=== PATIENT | female | born 1950 | race Two or more races ===

== ENCOUNTER 2017-11-20 06:32 | Day surgery (SDC) | payer OTHER ==
[~2017-11-20 06:32] MED LIST: CATAFLAN PO; NEURONTIN800 MG PO; ULTRACET PO; [UNRECOGNIZED DRUG - OTHER] PO
== END 2017-11-20 15:25 | disposition home or self-care (01) ==
LOC: CIR.AMB 06:32
DX: M65.842 Other synovitis and tenosynovitis, left hand (principal)